=== PATIENT | male | born 1935 | race Asian ===

== ENCOUNTER 2020-03-13 12:33 | Emergency (ER) | payer BC, MEDICAID ==
[~2020-03-13] VITALS: Ht 160 cm; Wt 59.0 kg
[~2020-03-13 12:33] MED LIST: AMIO200T PO; ENAL5TAB48 PO; LORA10TA19 PO; PSE1TAB69 PO
[2020-03-13 12:44] VITALS: BP 146/72
[2020-03-13 14:14] VITALS: BP 130/78
== END 2020-03-13 14:14 | disposition home or self-care (01) ==
LOC: MED 12:33
DX: S61.412A Laceration without foreign body of left hand, initial encounter (principal); W45.8XXA Other foreign body or object entering through skin, initial encounter; Y93.89 Activity, other specified; Y92.89 Other specified places as the place of occurrence of the external cause; Y99.8 Other external cause status
CPT/HCPCS: 99282

== ENCOUNTER 2020-03-16 09:11 | Emergency (ER) | payer BC, MEDICAID ==
[~2020-03-16] VITALS: Ht 170.2 cm; Wt 90.7 kg
[2020-03-16 09:13] VITALS: BP 167/73
--- NOTE | 2020-03-16 09:29 | NUR ---
85 Y/O MALE FROM HOME PRESENTS TO ER FOR WOUND RECHECK TO HIS LT HAND. PT WAS SEEN AT [facility] 03/13/2020 FOR SKIN TEAR S/P FALL. SLIGHT REDNESS AND SWELLING NOTED TO HAND. SKIN WARM TO THE TOUCH, DRY. NO BLEEDING AT THIS TIME. DENIES PAIN. +CMS, +PULSES. CALM AND PLESANT
--- NOTE | 2020-03-16 09:30 | NUR ---
VOD--PTS SON LEFT PHONE NUMBER. [phone]
--- NOTE | 2020-03-16 09:32 | NUR ---
DR COOK AT BEDSIDE EXAMINING PT
--- NOTE | 2020-03-16 09:50 | NUR ---
PT AMBULATED TO RESTROOM WITH STEADY GAIT USING ASSISTIVE DEVICE FOR AMBULATION
[2020-03-16 10:03] LABS: BASOPHILS # (AUTO) 0.1 K/uL (0.00-0.22); BASOPHILS % (AUTO) 0.9 % (0.0-2.0); EOSINOPHILS # (AUTO) 0.1 K/uL (0-0.4); EOSINOPHILS % (AUTO) 2.2 % (0.0-4.0); HEMATOCRIT 30.9 % (36-52); HEMOGLOBIN 10.6 g/dL (12.0-18.0); LYMPHOCYTES # (AUTO) 2.4 K/uL (2.0-11.5); LYMPHOCYTES % (AUTO) 38.8 % (20.5-51.1); MEAN CORPUSCULAR HEMOGLOBIN 31 pg (27-31); MEAN CORPUSCULAR HGB CONC 34 g/dL (33-37); MEAN CORPUSCULAR VOLUME 90.9 fL (80-94); MONOCYTES # (AUTO) 0.4 K/uL (0.8-1.0); MONOCYTES % (AUTO) 6.4 % (1.7-9.3); NEUTROPHILS # (AUTO) 3.2 K/uL (1.8-7.7); NEUTROPHILS % (AUTO) 51.7 % (42.2-75.2); PLATELET COUNT (AUTO) 286 K/uL (140-450); RED CELL DISTRIBUTION WIDTH 12.5 % (11.6-13.7); WHITE BLOOD COUNT (AUTO) 6.2 K/uL (4.8-10.8)
[2020-03-16 10:19] LABS: ANION GAP 15.6 (8-16); CHLORIDE 102 mmol/L (98-107); CREATININE 1.6 mg/dL (0.6-1.3); POTASSIUM 4.6 mmol/L (3.5-5.1); SODIUM SERUM 135 mmol/L (136-145); UREA NITROGEN, BLOOD 22 mg/dL (7-18)
[2020-03-16 10:29] LABS: APPEARANCE,URINE CLEAR (CLEAR); BILIRUBIN,URINE NEGATIVE (NEGATIVE); COLOR,URINE YELLOW (YELLOW); LEUKOCYTE ESTERASE ,URINE NEGATIVE (NEGATIVE); NITRITE, URINE NEGATIVE (NEGATIVE); PH,URINE 5.5 (5.0-9.0); UGLUCOSE 3+ (NEGATIVE)
[2020-03-16 10:31] LABS: RBC,URINE 0-5 /HPF (0-5)
[2020-03-16 10:32] LABS: BLOOD, URINE TRACE (NEGATIVE); WBC,URINE 0-5 /HPF (0-5)
[2020-03-16 10:36] LABS: GLUCOSE 403 mg/dL (74-106)
[2020-03-16 10:40] VITALS: BP 152/78
--- NOTE | 2020-03-16 10:41 | NUR ---
Patient discharged with v/s stable. Written and verbal after care instructions given and explained. Patient verbalized understanding. Ambulatory with steady gait WITH ASSISTIVE DEVICE. All questions addressed prior to discharge. Advised to follow up with PMD.
== END 2020-03-16 10:41 | disposition home or self-care (01) ==
LOC: MED 09:11
DX: S61.412D Laceration without foreign body of left hand, subsequent encounter (principal); R73.9 Hyperglycemia, unspecified; I10 Essential (primary) hypertension; Z79.899 Other long term (current) drug therapy; X58.XXXD Exposure to other specified factors, subsequent encounter
CPT/HCPCS: 36415; 80048; 81001; 82948; 85025; 99283